=== PATIENT | male | born 1970 | race Two or more races ===

== ENCOUNTER 2020-02-02 10:01 | Emergency (ER) | payer SELFPAY ==
[~2020-02-02] VITALS: Ht 165.1 cm; Wt 61.2 kg
[2020-02-02] MEDS ORDERED: Acetaminophen 500mg (ES) tab ORAL ONE (10:30)
[2020-02-02 10:35] VITALS: BP 131/90
--- NOTE | 2020-02-02 10:49 | Emergency Room Report ---
History of Present Illness General Chief Complaint: Head Injury Source: Patient Present Illness HPI 49-year-old male presents ED with head injury. States that a door fell on his head at work today. States he "blacked out". Has pain. 10 out of 10, throbbing, nonradiating. Feels dizzy. Denies nausea or vomiting. Denies neck pain. Denies any other injuries. No other aggravating relieving factors. Denies any other associated symptoms Allergies: Coded Allergies: No Known Allergies (Unverified , 02/02/20) COVID-19 Screening Contact w/high risk pt: No Recent Travel to affected area: No Experienced COVID-19 symptoms?: No Patient History Past Medical History: none Past Surgical History: none Pertinent Family History: none Social History: Denies: smoking, alcohol use, drug use Immunizations: UTD Reviewed Nursing Documentation: PMH: Agreed; PSxH: Agreed Nursing Documentation-PMH Past Medical History: No Stated History Review of Systems All Other Systems: negative except mentioned in HPI Physical Exam Vital Signs Date Time Temp Pulse Resp B/P (MAP) Pulse Ox O2 Delivery O2 Flow Rate FiO2 02/02/20 10:06 97.9 77 16 136/91 (106) 96 Room Air Sp02 EP Interpretation: reviewed, normal General Appearance: no apparent distress, alert, GCS 15, non-toxic Head: normocephalic, other - TTP L parietal scalp Eyes: bilateral eye normal inspection, bilateral eye PERRL ENT: hearing grossly normal, normal pharynx, no angioedema, normal voice Neck: full range of motion, supple/symm/no masses Respiratory: chest non-tender, lungs clear, normal breath sounds, speaking full sentences Cardiovascular #1: regular rate, rhythm, no edema Cardiovascular #2: 2+ carotid (R), 2+ carotid (L), 2+ radial (R), 2+ radial (L) , 2+ dorsalis pedis (R), 2+ dorsalis pedis (L) Gastrointestinal: normal bowel sounds, non tender, soft, non-distended, no guarding, no rebound Rectal: deferred Genitourinary: normal inspection, no CVA tenderness Musculoskeletal: back normal, normal range of motion, gait/station normal, non- tender Neurologic: alert, motor strength/tone normal, oriented x3, sensory intact, responsive, speech normal Psychiatric: judgement/insight normal, memory normal, mood/affect normal, no suicidal/homicidal ideation Reflexes: 3+ bicep (R), 3+ bicep (L), 3+ tricep (R), 3+ tricep (L), 3+ knee (R) , 3+ knee (L) Skin: no rash Lymphatic: no adenopathy Medical Decision Making Diagnostic Impression: Primary Impression: Acute head injury Qualified Codes: S09.90XA - Unspecified injury of head, initial encounter ER Course Hospital Course 49-year-old M presents ED complaining of headache after head injury. ? LOC Differential diagnoses include: skull fx, intracranial injury, concussion Clinical course Patient placed on stretcher. After initial history and physical I ordered CT head and pain medications CT head shows no acute process. I discussed findings with patient. Reassurance given. Safe for discharge for close outpatient follow-up. I will provide referrals Diagnosis - head injury Stable and discharged to home with Rx Motirn. Followup with PMD. Return to ED if symptoms recur or worsen CT/MRI/US Diagnostic Results CT/MRI/US Diagnostic Results : Imaging Test Ordered: CT HEad Impression no acute process Last Vital Signs Date Time Temp Pulse Resp B/P (MAP) Pulse Ox O2 Delivery O2 Flow Rate FiO2 02/02/20 10:06 97.9 77 16 136/91 (106) 96 Room Air Status: improved Disposition: HOME, SELF-CARE Condition: Stable Scripts Ibuprofen* (MOTRIN*) 600 Mg Tablet 600 MG ORAL Q8H PRN for FOR PAIN, #30 TAB 0 Refills Prov: Tim Martinez MD 02/02/20 Tim Martinez MD Feb 02, 2020 10:49
--- NOTE | 2020-02-02 11:21 | Diagnostic Imaging Report ---
Indications: Head injury, loss of consciousness, 10 out of 10 head pain Technique: Spiral acquisitions obtained through the brain. Angled axial and coronal 5 x 5 mm slices were reconstructed. Total dose length product 1018 mGycm. CTDI vol(s) 53 mGy. Dose reduction achieved using automated exposure control Comparison: None. Findings: No acute intracranial hemorrhage or edema. No mass effect nor midline shift. Calcification in the left temporal lobe likely reflects old cysticercosis. Intact calvarium. Mastoids are clear. Visualized orbits and sinuses are unremarkable. 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
[2020-02-02] MEDS ORDERED: IBUPROFEN600 M1 ORAL (13:06)
[2020-02-02 13:37] VITALS: BP 124/78
== END 2020-02-02 13:37 | disposition home or self-care (01) ==
LOC: EMR 10:41
DX: S09.90XA Unspecified injury of head, initial encounter (principal); W20.8XXA Other cause of strike by thrown, projected or falling object, initial encounter; Y92.9 Unspecified place or not applicable; Y99.0 Civilian activity done for income or pay
CPT/HCPCS: 70450; 99284